=== PATIENT | female | born 1965 | race Caucasian/White ===

== ENCOUNTER → 2016-09-11 | Outpatient (CLI) | payer BC ==
[~2016-09-11] MED LIST: BCPILLS PO
== END | disposition home or self-care (01) ==
LOC: C.PAPS 12:41
PROVIDERS: ATTEND Physician Assistant
DX: Z01.419 Encounter for gynecological examination (general) (routine) without abnormal findings (principal)

== ENCOUNTER → 2017-03-01 | Outpatient (CLI) | payer BC ==
[2017-03-01 09:40] LABS: HEMATOCRIT 36.1 % (37-47); MEAN CELL VOLUME 91.4 fL (80-100); MEAN CORPUSCULAR HEMOGLOBIN 30.9 pg (25-34); MEAN CORPUSCULAR HGB CONC 33.8 g/dl (32-36); MEAN PLATELET VOLUME 11.3 fL (7.4-10.4); PLATELET COUNT 227 K/uL (130-400); RED BLOOD COUNT 3.95 M/uL (4.2-5.4); WHITE BLOOD COUNT 3.32 K/uL (4.8-10.8)
[2017-03-01 10:10] LABS: BASO % 0.3 %; BASO ABS # 0.01 K/uL (0-0.2); COMPLETE YES; EOS % 1.8 %; IG% 0.3 %; LYMPH % 52.1 %; LYMPH ABS # 1.73 K/uL (1.2-3.4); MONO % 13.6 %; NEUT % 31.9 %
[2017-03-01 10:47] LABS: ALT/SGPT 26 U/L (12-78); AST/SGOT 21 U/L (15-37); BLOOD UREA NITROGEN 10 mg/dl (7-18); BUN/CREATININE RATIO 14.7 (10-20); CALCIUM 9.1 mg/dl (8.5-10.1); CARBON DIOXIDE 24 mmol/L (21-32); CHLORIDE 105 mmol/L (98-107); CREATININE 0.68 mg/dl (0.60-1.20); GLUCOSE 82 mg/dl (70-99); SODIUM 137 mmol/L (136-145)
[2017-03-01 10:56] LABS: ALB/GLOB RATIO 0.9 (0.9-2); ALKALINE PHOSPHATASE 67 U/L (45-117); CHOLESTEROL 174 mg/dl (0-200); CHOLESTEROL/HDL RATIO 2.9; HDL CHOLESTEROL 61 mg/dl; LDL CHOLESTEROL CALCULATED 101 mg/dl; TRIGLYCERIDES 62 mg/dl (0-150); VERY LOW DENSITY LIPOPROT CALC 12 mg/dl
== END | disposition home or self-care (01) ==
LOC: C.LAB1850 08:05
PROVIDERS: ATTEND Nurse Practitioner
DX: D72.819 Decreased white blood cell count, unspecified (principal); E55.9 Vitamin D deficiency, unspecified; Z13.6 Encounter for screening for cardiovascular disorders; D64.9 Anemia, unspecified; Z13.29 Encounter for screening for other suspected endocrine disorder

== ENCOUNTER → 2017-06-26 | Outpatient (CLI) | payer BC, OTHER ==
--- NOTE | 2017-06-27 15:23 | MAMMOGRAPHY REPORT ---
BILATERAL DIGITAL SCREENING MAMMOGRAM TOMOSYNTHESIS WITH CAD: 06/26/2017 CLINICAL HISTORY: Routine screening. Patient has no complaints. TECHNIQUE: Breast tomosynthesis in addition to standard 2D mammography was performed. Current study was also evaluated with a Computer Aided Detection (CAD) system. COMPARISON: Comparison is made to exams dated: 05/05/2015 mammogram, 02/12/2014 mammogram, 02/03/2014 ma mmogram, 04/11/2012 mammogram, and 02/09/2011 mammogram - [facility]. BREAST COMPOSITION: There are scattered areas of fibroglandular density in both breasts. FINDINGS: No suspicious masses, calcifications, or areas of architectural distortion are noted in ei ther breast. There has been no significant interval change compared to prior exams. There is fluctua ting nodularity bilaterally, which likely represent fluctuating cysts; note that multiple cysts have been seen on prior ultrasound exams. IMPRESSION: ACR BI-RADS CATEGORY 2: BENIGN There is no mammographic evidence of malignancy. A 1 year screening mammogram is recommended. The pa tient will receive written notification of the results. Approximately 10% of breast cancers are not detected with mammography. A negative mammographic report should not delay biopsy if a clinically suggestive mass is present. Marcia Colunga M.D. ah/:06/26/2017 14:41:40 Surgical Nurse: Ruth DE ANDA(Riaz)(Vanessa)([place]), [facility] letter sent: Normal 1/2 BI-RADS Code: ACR BI-RADS Category 2: Benign
== END | disposition home or self-care (01) ==
LOC: C.MAMM 13:50
PROVIDERS: ATTEND Nurse Practitioner
DX: Z12.31 Encounter for screening mammogram for malignant neoplasm of breast (principal)

== ENCOUNTER → 2017-09-18 | Outpatient (CLI) | payer OTHER | END | disposition home or self-care (01) | LOC: C.PAPS 18:19 | PROVIDERS: ATTEND Obstetrics & Gynecology | DX: Z12.4 Encounter for screening for malignant neoplasm of cervix (principal); R87.610 Atypical squamous cells of undetermined significance on cytologic smear of cervix (ASC-US); R87.616 Satisfactory cervical smear but lacking transformation zone; Z11.51 Encounter for screening for human papillomavirus (HPV) ==